=== PATIENT | female | born 1970 | race Caucasian/White ===

== ENCOUNTER 2019-11-16 05:50 | Day surgery (SDC) | payer OTHER ==
[~2019-11-16] VITALS: Ht 170.2 cm; Wt 109.8 kg
[~2019-11-16 05:50] MED LIST: ANASTROZOLE1 MG PO; EXEMESTANE25 MG PO; MAPAP325 MG PO; MOTRIN IB200 MG PO; OXYCODON-ACETA1 EAC2 PO; ZOLADEX3.6 MG SUB-Q
[2019-11-16] MEDS ORDERED: ALEVE220 MG PO (06:03)
[2019-11-16] MEDS ORDERED: MELATIN3 MG PO (06:04)
--- NOTE | 2019-11-16 09:30 | NUR ---
11/16/19 0930 Lorna Mahmood 0913 PT ARRIVED TO PACU ON 6L VIA MASK, PT STARTS TO REACH AND GRAB HER FACE. VSS. PT REACTIVE TO TACTILE STIMULI AND RESP EVEN AND UNLABORED. 916 PT ABLE TO FOLLOW COMMANDS TO OPEN MOUTH AND ORAL AIRWAY REMOVED. PT REACHING FOR SIDE RAILS AND TRYING TO SIT UP IN BED, RN AND BALL HOLDER TRYING TO REORIENT PT TO PACU. PT LAYS BACK IN BED. 921 PT TRYING TO GET OUT OF BAD AND REPORTS SHE NEEDS TO VOID, EDUCATION GIVEN ON MOON IN PLACE AND MOON WNL. BRIGHT YELLOW URINE NOTED. PT REST BACK IN BED, O2 MASK REMOVED. PT DENIES PAIN AND NAUSEA.
--- NOTE | 2019-11-16 10:05 | NUR ---
PT IS HELPED BACK TO THE BATHROOM BY . SHE IS TUCKED BACK IN, DR. AVENDANO IS IN THE ROOM TALKING WITH PT AND . SHE IS ONLY ABLE TO VOID ABOUT 50ML OF DARK YELLOW URINE.
[2019-11-16] MEDS ORDERED: PERCOCET 5-3251 EACH PO (10:20)
[2019-11-16] MEDS ORDERED: ONDANSETRON ODT8 MG PO (10:21)
--- NOTE | 2019-11-16 11:01 | NUR ---
MEDICATED FOR 3/10 RLQ ABDOMINAL PAIN PER EMAR AT 1040. CRACKERS AND WATER PROVIDED. PT DENIES NAUSEA HOWEVER SHE APPEARS SLIGHTLY DIAPHORETIC AND PALE. PT APPEARS TO BE SLEEPING AT 1100. AT BEDSIDE.
--- NOTE | 2019-11-16 12:37 | NUR ---
LE 1200: PATIENT IS UP TO THE BATHROOM WITH ASSIST. PATIENT VOIDS 300 ML BRIGHT, YELLOW URINE. DISCHARGE INSTRUCTIONS ARE GIVEN AND PATIENT AND SPOUSE VERBALIZE UNDERSTANDING. PATIENT IS GETTING DRESSED. PATIENT TRANSFERS HERSELF TO THE WHEELCHAIR AND THEN TO PERSONAL VEHICLE AND TOLERATES THAT WELL AND SHE IS DISCHARGED HOME.
--- NOTE | 2019-11-16 14:00 | NUR ---
COULD ONLY WAVE AND GIVE ENCOURAGEMENT TO PT OR STAFF IS WHEELING HER TO SURGERY. DID HOWEVER HAVE A MOMENT TO ENCOURAGE AND HAVE PRAYER WITH HIM. WILL FOLLOW NEEDED
--- NOTE | 2019-11-18 09:25 | OR ---
[facility] [address] [place], [place] [address] Signed DATE OF OPERATION: 11/16/2019 SURGEON: Trish Mendoza MD USABILITY ARCHITECT: Major Hernandez MD. PREOPERATIVE DIAGNOSIS: ER positive breast cancer, uterine fibroid. POSTOPERATIVE DIAGNOSIS: ER positive breast cancer, uterine fibroid. PROCEDURE: Total laparoscopic hysterectomy, bilateral salpingo-oophorectomy, cystoscopy. ANESTHESIA: General ET. ESTIMATED BLOOD LOSS: 50 mL. DRAINS: Jones catheter. INDICATIONS AND FINDINGS: The patient is a 49-year-old female 4, para 4, was diagnosed with breast cancer approximately one year ago. She has been on Zoladex as well as exemestane and she wishes to avoid repeat injections because of significant side effects. At this point, she desires removal of her ovaries. At the time of surgery, exam under anesthesia revealed a top-normal size uterus. There was a small fibroid. At the time of laparoscopy, again a small fibroid and normal tubes and ovaries. DESCRIPTION OF PROCEDURE: The patient was prepped and draped in the dorsal lithotomy position. A weighted speculum was placed. The anterior lip of the cervix was visualized and grasped with a single-tooth tenaculum. The cavity was sounded to 9.5 cm in length. The endocervical canal was then dilated and a VCare cannula was inserted and the balloon inflated at the fundus. The tenaculum and speculum removed and the cup was fitted over the cervix and a locking cap fitted into place. Following this, attention was directed above. The Electronically Signed By: TRISH MENDOZA MD 11/18/19 0925 PATIENT NAME: ARIELLE OLIVEIRA OPERATIVE REPORT DATE OF : 74 REPORT #: [id number] PHYSICIAN: TRISH MENDOZA MD PCP: KEIRA ROBERTS MD REPORT IS CONFIDENTIAL AND NOT TO BE RELEASED WITHOUT AUTHORIZATION [facility] [address] [place], [place] [address] Signed infraumbilical area was injected with 0.5% Marcaine plain. An incision was made with a knife. Each layer was then serially elevated and incised until the fascia was opened and identified. Stay sutures were placed on the fascia. Following this, the peritoneum was opened bluntly. The Evie cannula was then placed and the balloon inflated. Placement of the scope confirmed proper positioning. CO2 was then introduced in the abdomen under low pressures. When the abdomen was appropriately distended, the pelvis was visualized and the planned procedure appeared appropriate. Secondary ports were placed slightly below the level of the umbilicus laterally. The left hand port was a 5 mm port and the right side was a Veress needle followed by the expanding port. Each of these areas were injected with the Marcaine, incision made with a knife and the trocars placed under direct vision. Following this, there were some adhesions noted of the omentum to the left lower quadrant obscuring the infundibulopelvic ligament. These were lysed using the LigaSure [place] device. Following this, the procedure was begun. The left infundibulopelvic ligament was cauterized multiple times and then divided. Following this, an Endoloop was placed over the infundibulopelvic ligament to assure hemostasis. This was a 0 PDS. The broad ligament was taken down by serially cauterizing and incising until the round ligament was cauterized and divided. The anterior leaf of the peritoneum was then incised allowing for partial bladder flap. The posterior peritoneum was taken down as well. Uterine vessels were skeletonized and coagulated multiple times. These were then divided. Attention was directed then to the right side. Again, the infundibulopelvic ligament was cauterized multiple times and then divided. An Endoloop was placed over the infundibulopelvic ligament to assure hemostasis. Following this, the broad ligament was serially coagulated and divided until the round ligament was cauterized and divided as well. The anterior and posterior leaves of the peritoneum were then divided, allowing for isolation of the uterine vessels. These were then coagulated multiple times and divided. The peritoneum was taken down further anteriorly. It was clear that the left hand side had been taken fairly high and this was corrected. Further dissection was done posteriorly as well. Attention was redirected to the left side and further dissection was done in the uterine vessel areas as well as anteriorly. Following this, it was felt that the specimen could be removed. During this time, a small anterior fibroid was removed after it came off after grasping this. This was sent with the remainder of the specimen. The Sonicision device was used to separate the specimen from the vaginal cuff beginning posteriorly and wrapping around anteriorly on the left side and again posteriorly and wrapping around the right side anteriorly. Following this, the specimen was removed intact through the vagina. The vaginal canal was then packed with a glove with a wet lap to allow the pneumoperitoneum to reaccumulate. Attention was then directed above again. The abdomen was copiously irrigated and inspected and there was some bleeding points near the left uterine vessels and over the bladder. These were primarily controlled with monopolar cautery with the spatula tip. Following this, the cuff was closed using the EndoStitch. It was begun at the patient's right uterosacral ligament, taking care to incorporate the peritoneum Electronically Signed By: TRISH MENDOZA MD 11/18/19 0925 PATIENT NAME: ARIELLE OLIVEIRA OPERATIVE REPORT DATE OF : 74 REPORT #: [id number] PHYSICIAN: TRISH MENDOZA MD PCP: KEIRA ROBERTS MD REPORT IS CONFIDENTIAL AND NOT TO BE RELEASED WITHOUT AUTHORIZATION [facility] [address] [place], [place] [address] Signed posteriorly and the vaginal mucosa posteriorly and anteriorly. This was run to the patient's left and then back to the center. Following this, the abdomen was irrigated again and there were just some raw areas and there was no evidence of any active bleeding. Tisseel was then sprayed over the pelvis to assure hemostasis. Following this, all instruments removed from the abdomen after allowing as much CO2 as possible to escape. The fascial incision at the umbilicus was reidentified and closed with a running suture of 0 Vicryl. The skin incisions were closed with subcuticular sutures of 3-0 Vicryl Rapide. Attention was directed down below and the vaginal pack was removed. Cystoscopy was then done using the 30-degree scope. The Jones catheter was removed. The scope was then placed and the bladder visualized. There was some bruising posteriorly, but there was no evidence of any sutures or other injury to the bladder. Prompt spill of urine was seen from both of the ureteral orifices. She had received IV fluorescein, but this was not visible at this point. Following this, the procedure was complete after removal of the cystoscope and drainage of the bladder. The Jones catheter was replaced. She was taken to the recovery room in good condition. All sponge and needle counts were correct. Trish Mendoza MD PJW/MODL /[id number] cc: Major Hernandez MD Copies: MAJOR HERNANDEZ MD ~ Electronically Signed By: TRISH MENDOZA MD 11/18/19 0925 PATIENT NAME: ARIELLE OLIVEIRA ANN OPERATIVE REPORT DATE OF : 74 REPORT #: [id number] PHYSICIAN: TRISH MENDOZA MD PCP: KEIRA ROBERTS MD REPORT IS CONFIDENTIAL AND NOT TO BE RELEASED WITHOUT AUTHORIZATION
--- NOTE | 2019-11-18 17:04 | PATH ---
[facility] [address] [place], [place] [address] Signed SPECIMEN(S): A UTERUS, CERVIX, TUBES OVARIES SPECIMEN SOURCE: A. UTERUS, CERVIX, TUBES OVARIES CLINICAL HISTORY: Uterine leiomyoma; breast CA. FINAL PATHOLOGIC DIAGNOSIS: Uterus, cervix, and bilateral fallopian tubes and ovaries, hysterectomy and bilateral salpingo-oophorectomy: - Cervix: Chronic inflammation and reactive changes. - Endometrium: Weakly proliferative endometrium. - Myometrium: Adenomyosis and leiomyoma (4 mm in greatest dimension). - Ovaries: Cystic follicles (1 cm in greatest dimension). - Fallopian tubes: No histopathologic abnormality. - Negative for malignancy. NAL:cml:C2NR MICROSCOPIC EXAMINATION: Histologic sections of all submitted blocks are examined by light microscopy. Focal area of the right fallopian tube fimbria demonstrates mild cellular atypia without increased mitoses. Immunohistochemical stains (with appropriately staining controls) were performed to evaluate this region, which show a non-mutated p53 pattern and no increase Ki-67 staining; this pattern confirms the absence of an intraepithelial lesion. These findings, together with the gross examination, support the pathologic diagnosis. GROSS DESCRIPTION: The specimen, labeled "NishantFelicia," and designated on the requisition "cervix, uterus, bilateral fallopian tubes and ovaries," is received in formalin and consists of 84 gram uterus and cervix without bilateral adnexa. The uterus is 3.7 x 3.4 x 8.6 cm (cornu-cornu x anterior-posterior x fundus-ectocervix). The serosal surface is pink and focally congested with one defect that is 0.7 x 0.6 cm. The ectocervical mucosa is pale pink and smooth. Serial sectioning of the cervix fails to demonstrate any gross abnormalities. The triangular endometrial cavity is lined by a pink smooth and focally congested endometrium that has an average thickness of 0.2 cm. Sectioning through the uterus reveals a pink moderately trabeculated myometrium PATIENT NAME: FELICIA OLIVEIRA PATHOLOGY DATE OF : 74 REPORT #: [id number] PHYSICIAN: [place] PCP: KEIRA ROBERTS MD REPORT IS CONFIDENTIAL AND NOT TO BE RELEASED WITHOUT AUTHORIZATION [facility] [address] [place], [place] [address] Signed with one white-parrish well circumscribed intramural nodule that is 0.4 cm in greatest dimension. The left tubo-ovarian complex has a 7.2 x 0.7 cm fallopian tube with delicate fimbriae. The serosa is violaceous and smooth. Cut sections reveal a pinpoint lumen. The 2.6 x 2.4 x 2.3 cm ovary has a white-parrish cerebriform external surface. Serial sectioning reveals a pink-white variegated ovarian parenchyma with one clear watery fluid filled cystic structure that is 0.9 cm in greatest dimension. No papillary excrescence is grossly identified. The right tubo-ovarian complex has a 6.8 x 0.7 cm fallopian tube with delicate fimbriae. The serosa is violaceous and smooth. Cut sections reveal a pinpoint lumen. The 2.8 x 2.7 x 2.3 cm ovary has a white-parrish cerebriform external surface. Serial sectioning reveals a pink-white variegated ovarian parenchyma with clear watery fluid filled cysts, which measure up to 1.0 cm in greatest dimension. No papillary excrescence is grossly identified. Spring Clipper sections are submitted in four cassettes. Cassette summary: (A1) cervix (A2) uterine wall and intramural nodule (A3) left tubo-ovarian complex (A4) right tubo-ovarian complex. FB (under the direct supervision of a pathologist) The Gross Description was prepared using a voice recognition system. The report was reviewed for accuracy; however, sound-alike word errors, addition and/or deletions may occur. If there is any question about this report, please contact Client Services. ADDITIONAL NOTES: Immunohistochemical and/or in situ hybridization studies were performed on this case with the appropriate positive controls that react as expected. This test was developed and its performance characteristics determined by [facility]. It has not been cleared or approved by the U.S. Food and Drug Administration. The FDA has determined that such clearance or approval is not necessary. This test is used for clinical purposes. It should not be regarded as investigational or for research. [facility] is certified under the Clinical Laboratory Improvement Amendments of 1988 (CLIA) as qualified to perform high complexity clinical laboratory testing. PATIENT NAME: FELICIA OLIVEIRA PATHOLOGY DATE OF : 74 REPORT #: [id number] PHYSICIAN: [place] [facility] PCP: KEIRA ROBERTS MD REPORT IS CONFIDENTIAL AND NOT TO BE RELEASED WITHOUT AUTHORIZATION [facility] [address] [place], [place] [address] Signed PERFORMING LABORATORY: The technical component was performed by [facility], [address] [place] [id number] (Room Worker: Libra Castro MD; CLIA# [id number]). Professional interpretation was performed by [facility], [facility], [address] [place] [address] (CLIA# [id number]). Diagnostician: Jeanine Jeong MD Pathologist Electronically Signed 11/18/2019 Copies: ~ PATIENT NAME: FELICIA OLIVEIRA ANN PATHOLOGY DATE OF : 74 REPORT #: [id number] PHYSICIAN: [place] [facility] PCP: KEIRA ROBERTS MD REPORT IS CONFIDENTIAL AND NOT TO BE RELEASED WITHOUT AUTHORIZATION
== END 2019-11-16 12:15 | disposition home or self-care (01) ==
LOC: DS 05:50
PROVIDERS: Obstetrics & Gynecology
PROC: 0UT94ZZ Resection of Uterus, Percutaneous Endoscopic Approach (ICD-10-PCS; principal; 2019-11-16 06:45)
PROC: 0UT24ZZ Resection of Bilateral Ovaries, Percutaneous Endoscopic Approach (ICD-10-PCS; 2019-11-16 06:45)
PROC: 0UT74ZZ Resection of Bilateral Fallopian Tubes, Percutaneous Endoscopic Approach (ICD-10-PCS; 2019-11-16 06:45)
DX: D25.9 Leiomyoma of uterus, unspecified (principal); N72 Inflammatory disease of cervix uteri; N80.0 Endometriosis of uterus; N83.202 Unspecified ovarian cyst, left side; N83.201 Unspecified ovarian cyst, right side; C50.412 Malignant neoplasm of upper-outer quadrant of left female breast; Z79.899 Other long term (current) drug therapy; Z88.2 Allergy status to sulfonamides; Z17.0 Estrogen receptor positive status [ER+]
CPT/HCPCS: 00944; J0694; J1100; J1170; J1200; J1644; J1885; J2001; J2250; J2370; J2405; J2704; J2765; J3010; J7121

== ENCOUNTER 2022-10-17 07:39 | Emergency (ER) | payer OTHER ==
[~2022-10-17] VITALS: Ht 170.2 cm; Wt 108.0 kg
[~2022-10-17 07:39] MED LIST changes: +ALEVE220 MG PO; +MELATIN3 MG PO; +ONDANSETRON ODT8 MG PO; +PERCOCET 5-3251 EACH PO
--- OUTSIDE RECORDS SUMMARY | 2022-10-17 07:43 | XMS ---
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 Jada has no Care Guidelines for this patient. Leigh VISIT COUNT (12 MO.) 1 [facility] TOTAL 1 NOTE: Visits indicate total known visits. ED/C VISIT TRACKING (12 MO.) 10/17/2022 07:40 [facility] [place] TYPE: Emergency COMPLAINT: - ABNORMAL LABS INPATIENT VISIT TRACKING (12 MO.) No inpatient visits to display in this time frame [id number]
[2022-10-17] MEDS ORDERED: GABAPENTIN300 MG PO (08:00)
[2022-10-17] MEDS ORDERED: ONDANSETRON ODT8 MG PO (12:31)
[2022-10-17] MEDS ORDERED: OXYCODONE HCL5 MG PO (12:31)
[2022-10-17 12:53] VITALS: BP 110/76
== END 2022-10-17 12:54 | disposition home or self-care (01) ==
LOC: ED 07:39
DX: M54.50 Low back pain, unspecified (principal); R93.7 Abnormal findings on diagnostic imaging of other parts of musculoskeletal system; K80.50 Calculus of bile duct without cholangitis or cholecystitis without obstruction; Z88.2 Allergy status to sulfonamides; Z79.899 Other long term (current) drug therapy
CPT/HCPCS: 36415; 72158; 76705; 80053; 83690; 85025; 85060; 85651; 86140; 99284-25; A9577; J1170; J7030

== ENCOUNTER 2022-10-25 12:40 | Inpatient (IN) | payer OTHER ==
[~2022-10-25] VITALS: Ht 170.2 cm; Wt 92.3 kg
[~2022-10-25 12:40] MED LIST changes: +GABAPENTIN300 MG PO; +OXYCODONE HCL5 MG PO
--- OUTSIDE RECORDS SUMMARY | 2022-10-25 12:43 | XMS ---
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 Jada has no Care Guidelines for this patient. [place] [facility] 2 NOTE: Visits indicate total known visits. ED/C VISIT TRACKING (12 MO.) [facility] COMPLAINT: - ALTERED MENTAL STATUS 10/17/2022 07:[address] [facility] [place] TYPE: Emergency COMPLAINT: - ABNORMAL LABS DIAGNOSES: - Abnormal findings on diagnostic imaging of other parts of musculoskeletal system - Allergy status to sulfonamides - Calculus of bile duct without cholangitis or cholecystitis without obstruction - Low back pain, unspecified - Other fpc (current) drug therapy INPATIENT VISIT TRACKING (12 MO.) No inpatient visits to display in this time frame [id number]
--- NOTE | 2022-10-25 18:30 | NUR ---
pt arrived to ccu via stretcher with rocael rn at this time for admission into room 127
[2022-10-25 18:40] VITALS: BP 102/84
--- NOTE | 2022-10-25 19:15 | EKG ---
[facility] [address] [place] [address] Signed Sinus tachycardia Otherwise normal ECG When compared with ECG of 26-APR-2018 16:29, Vent. rate has increased BY 61 BPM Confirmed by Maicol Montero MD () on 10/25/2022 7:15:19 PM Electronically Signed By: MAICOL MONTERO MD 10/25/221914 PATIENT NAME: ARIELLE OLIVEIRA ANN Electrocardiogram DATE OF : 74 PHYSICIAN: MAICOL MONTERO MD REPORT #: [id number] REPORT IS CONFIDENTIAL AND NOT TO BE RELEASED WITHOUT AUTHORIZATION
[2022-10-25 20:31] VITALS: BP 123/89
--- NOTE | 2022-10-25 20:45 | NUR ---
PRBC TRANSFUSION FINSIHED 2019. PATIENT HAS NO SIGNS OF REACTION. VS STABLE. PATIENT UP TO THE BSC WITH ASSIST FROM HER AND ABLE TO VOID 250 MLS PRIMO COLORED URINE. PATIENT IS ABLE TO STAND WITH ASSIST BUT REQUIRES SIGNIFICANT ASSISTANCE FROM HER .
--- NOTE | 2022-10-25 21:06 | NUR ---
CONTINUED ATTEMPT TO START SECOND IV AND DRAW LABS UNSUCESSFUL. LIVE IN CAREGIVER CONTACTED FOR ASSISTANCE.
--- NOTE | 2022-10-25 22:21 | NUR ---
IV FLUIDS PROVIDED. IV FLUSHED WELL. NO OTHER NEEDS AT THIS TIME. FAMILY IN ROOM. CALL LIGHT IN REACH.
[2022-10-25 23:00] VITALS: BP 130/97
--- NOTE | 2022-10-25 23:00 | NUR ---
PATIENT PROVIDED WITH PRN PAIN MEDS AND PRN ATIVAN FOR ANXIETY. PATIENT'S REPORTS THAT SHE "STARTS TO SUNDOWN" AT NIGHT AND FREQUENTLY BECOMES RESTLESS. ASSISTED PATIENT TO GET COMORTABLE. LIGHTS DIMMED. AFTER 30 MINS PATIENT APPEARED TO BE SLEEPING VERY SOUNDLY AND SNORING, WHICH PATIENT'S STATED WAS NORMAL. Sp02 WAS BETWEEN 87-90%; PLACED ON 2L NC.
[2022-10-26] VITALS (12 sets, daily range): BP systolic 106–141; BP diastolic 61–89
--- NOTE | 2022-10-26 01:37 | NUR ---
PT SPO2 DROPS TO LOW 80s. PT SLEEPING WITH MOUTH OPEN, CHANGED TO AN OXYMASK @ 4LPM. sPO2 RETURNS TO MID 90s. NO OTHER NEEDS AT THIS TIME. SPOUSE IN ROOM. CALL LIGHT IN REACH.
--- NOTE | 2022-10-26 03:00 | NUR ---
ASSISTED PATIENT UP TO THE [facility] TO [facility]ID. PATIENT MOVES WITH 1PA BUT IS PAINFUL UPON MOVING. DECLINED PRN PAIN MEDS. PATIENT VOIDED AND RETURNED TO BED. PATIENT'S REPORTS SHE HAS BEEN HAVING "SUNDOWNER" SYMPTOMS BUT PATIENT IS ABLE TO ANSWER ALL ORIENTATION QUESTIONS APPROPRIATELY. PATIENT HOWEVER IS RESTLESS AND PICKING AT HER LINES. ENCOURAGED PATIENT TO REST. REMOVED ALL EXTRA STIMULI.
--- NOTE | 2022-10-26 06:05 | NUR ---
LABS DRAWN FROM IV SITE PER POLICY. PATIENT IS ALERT. SOMEWHAT CONFUSED UPON WAKING BUT EASILY REORIENTED AND ANSWERS QUESTIONS APPROPRIATELY. VS STABLE ASSISTED PATIENT WITH SOME WATER AND REPOSITIONING IN BED.
--- NOTE | 2022-10-26 07:30 | NUR ---
REPORT RECEIVED FROM NIGHT RN - PT RESTING IN BED WITH AT BEDSIDE.
--- NOTE | 2022-10-26 08:30 | NUR ---
ASSESSMENT COMPLETE - PT ORIENTED X4 WITH SELF CORRECTION ON INCORRECT YEAR RESPONSE. EXPRESSIVE APHASIA NOTED AT TIMES, DIFFICULTY STAYING ON TRACK OF CONVERSATION SHE IS HAVING. ALL OTHER NEURO EXAM WNL. VS STABLE - REMAINS IN SINUS TACH RHYTHM. PT PIVOT TRANSFERING BY ASSIST OF TO BSC TO EAT BREAKFAST. RN AT SIDE TO ASSIST WITH LINE MANAGMENT. PT PREFERS TO PREFORM CARES. IV SITE PATENT X2. PT REPORTS PAIN AT 5/10 IN BACK, PRN MEDICATION PROVIDED. NIO BOWEL CARE INITIATED - NO BM FOR OVER 5 DAYS PER . ENCOURAGED CLEAR ENSURES - PT TOLERATING WELL.
--- NOTE | 2022-10-26 09:22 | NUR ---
RN IN ROOM ROUNDING WITH MD - ALL QUESTIONS ANSWERED FOR FAMILY ON CURRENT POC.
--- NOTE | 2022-10-26 10:00 | NUR ---
LABS PULLED FROM RIGHT IV SITE FOR 1000 LABS WITHOUT DIFFICULTY. PT AWAKE AND WORKING WITH PHYSICAL THERAPY.
--- NOTE | 2022-10-26 11:21 | NUR ---
RN IN ROOM TO ROUND ON PT - PT VISITING WITH FAMILY AT BEDSIDE. FAMILY STATES PT HAS EATEN 1 BITE OF GERMAN AND YOGURT. ENCOURAGED FLUID INTAKE. PT RESTING COMFORTABLY IN BED. VS STABLE.
--- NOTE | 2022-10-26 12:10 | NUR ---
ASSESSMENT COMPLETE - PT SPEECH MORE QUICK TO RESPOND APPROPRIATLEY TO ORIENTATION QUESTIONS. NO FURTHER CHANGES. PT NOT INTERESTED IN LUNCH AT THIS TIME BUT DID FINISH CLEAR ENSURE AND REQUESTS MORE. DAUGHTER AT BEDSIDE, ENCOUGED PT TO REST WITHOUT VISITORS IN ROOM AT THIS TIME. CALL LIGHT IN REACH. DENIES FURTHER NEEDS.
--- NOTE | 2022-10-26 12:47 | NUR ---
PLATLET INFUSION STARTED - PT RESTING IN BED ASLEEP, NO DISTRESS NOTED. 2L 02 PLACED TO MAINTAIN SPO2 WHILE SLEEPING. VS STABLE.
[2022-10-26] MEDS ORDERED: HYDROCODON-ACE1 EA10 PO (15:02)
--- NOTE | 2022-10-26 15:03 | NUR ---
MED REC COMPLETE
--- NOTE | 2022-10-26 16:15 | NUR ---
2ND UNIT PLATELETS COMPLETE - VS STABLE. PT UP TO BSC TO VOID WITH HUSAND ASSIST PIVOT TRANSFER. ORAL CARE AND BED LINEN COMPLETE.
--- NOTE | 2022-10-26 17:44 | NUR ---
ASSESSMENT COMPLETE - PT STRENGHT, SPEECH AND APETITE ALL IMPROVING. PRBC UNIT CURRENTLY INFUSING. PT TOLERAING ALL INFUSIONS WITHOUT DIFFICULTY. VS REMAIN STABLE. PT DENIES NEED FOR PAIN MEDICATION AT THIS TIME. FAMILY AT BEDSIDE, ATTENTIVE TO ALL NEEDS.
--- NOTE | 2022-10-26 20:16 | NUR ---
ASSISTED PATIENT UP TO THE BSC. PATIENT IS ABLE TO STAND WITH 1PA HEAVY ASSIST. PATIENT WILLING TO USE WALKER AT THIS TIME. STAND PIVOT WITH THIS RN AND FAMILY ASSIST. PATIENT PASSED SOME GAS AND HAD A SMEAR OF BM. PATIENT IS ALERT AND ORIENTED; FOLLOWS DIRECTIONS EASILY. HAS EQUAL STRENGTH CLAIR IN UPPER AND LOWER EXTREMITIES. VS STABLE. TOLERATING ROOM AIR. LUNG SOUNDS ARE CLEAR. IV SITE WNL IN RIGHT HAND. RIGHT AC SITE HAS LEAKED SOME UNDER THE DRESSING BUT FLUSHES EASILY. PATIENT HAS VISITORS AND FAMILY AT BEDSIDE.
--- NOTE | 2022-10-26 21:30 | NUR ---
PATIENT PROVIDED EVENING MEDS PER ORDER. RT DISCUSSED OPTION OF CPAP USE AND PATIENT REQUEST TO ONLY USE SUPPLEMENTAL O2. PATIENT RESTING IN BED WITH IVF INFUSING. IV SITES WNL X2. PRN PAIN MEDS FOR CHRONIC BACK PAIN. PRN ATIVAN FOR ANIXETY. FAMILY AT BEDSIDE. NO OTHER NEEDS AT THIS TIME.
[2022-10-27] VITALS: BP 123/77
[2022-10-27 02:00] VITALS: BP 119/69
--- NOTE | 2022-10-27 02:15 | NUR ---
PATIENT CALLED AND REPORTS 6/10 BACK PAIN. PRN OXY PROVIDED. PATIENT ASSISTED TO POSITION FOR COMFORT ON HER SIDE.
[2022-10-27 04:00] VITALS: BP 138/79
--- NOTE | 2022-10-27 05:24 | NUR ---
PT ASSISTED TO BSSC AND BACK TO BED. FAMILY AND PT REQUEST MED FOR ANXIETY, PRN ANXIETY MED PROVIDED. NO OTHER NEEDS AT THIS TIME. CALL LIGHT IN REACH. SPOUSE IN ROOM.
[2022-10-27 06:00] VITALS: BP 147/82
--- NOTE | 2022-10-27 06:00 | NUR ---
LAB UPDATE GIVEN TO PATIENT'S SPOUCE AT BEDSIDE. PATIENT APPEARS TO BE SLEEPING SOUNDLY. VS STABLE. NEW BAG IVF STARTED. IV SITE WNL.
--- NOTE | 2022-10-27 07:41 | NUR ---
Report from Dickson Ramírez RN. Patient lying in bed. Alert. Spouse at bedside. IV fluids infusing. Oxygen on per Oxymask at this time. Allowed to rest at this time. Call light in reach. Bed rails up X2.
--- NOTE | 2022-10-27 08:17 | NUR ---
ASSIST TO BSC BY SPOUSE AND THIS NURSE. CONTINENT OF URINE, SMEARING STOOL. RETURNS TO BED. ASSIST TO SET UP FOR BREAKFAST. DECADRON ADMINISTERED PRESCRIBED. DENIES OTHER NEEDS AT THIS TIME. SPOUSE REMAINS AT BEDSIDE. O2 MASK REMOVED, SATS REMAIN 92% ON ROOM AIR AT THIS TIME.
[2022-10-27 08:34] VITALS: BP 131/84
--- NOTE | 2022-10-27 08:39 | NUR ---
PATIENT AWAKE IN BED, BREAKFAST PROVIDED. PATIENT ENCOURAGED TO EAT,PUDDING AND APPLESAUCE PROVIDED. VITALS CHARTED, AT BEDSIDE. OTHER FAMILY MEMBERS ARRIVING AT THIS TIME.
--- NOTE | 2022-10-27 09:35 | NUR ---
This nurse in room to give AM medications. Patient states IV site to hand is wet. Dressing removed, IV site intact, no signs of infiltration noted. Hub noted to be loose, tightened. Transparent dressing reapplied. IV site flushes without difficulty, dressing remains dry and intact. AM medications adminsitered. New orders, Dr. Juan notified platelets will not be available until this evening. Dr. Juan in to speak with patient and family. Informed of plan of care for LP, MRI and need for more platelets. Patient, family and spouse verbalize understanding, no questions.
--- NOTE | 2022-10-27 11:00 | NUR ---
OVER TO UNIT. PATIENT HAS MULTIPLE FAMILY MEMBERS IN THE ROOM AND COUNTERINTELLIGENCE AGENT ARRIVES TO TAKE PATIENT FOR LP. WILL FOLLOW UP WITH PATIENT AT LATER TIME.
--- NOTE | 2022-10-27 11:15 | NUR ---
RADIOLOGY STAFF HERE TO TRANSPORT PATIENT FOR LP WITH MEDICATION ADMINISTRATION BY DR. RO. PATIENT IV CONVERTED TO SL. ASSIST TO BSC, CONTINENT OF SMALL AMOUNT OF SOFT, BROWN STOOL. RETURNS TO BED. TRANSPORTED BY RADIOLOGY FOR STUDY AT THIS TIME.
--- NOTE | 2022-10-27 13:29 | NUR ---
PT ALERT, ORIENTED AND SUPPORTEC BY A HOST OF FAMILY-BOTH LOCALLY AND FROM OUT OF TOWN. PT VERY APPRECIATIVE OF CARE SHE HAS RECEIVED WHILE AT [facility]. GAVE ENCOURAGEMENT, PT REQUESTED PRAYER AND CHANGE [facility]EN PREFERENCE TO [facility]. I TOOK CARE OF REQUEST WITH ADMITTING. GAVE ENCOURAGEMENT, BLESSING, G.POST AND SUPPORT. WILL CONTINUE TO FOLLOW.
--- NOTE | 2022-10-27 14:03 | NUR ---
To room 115 from radiology in bed. Alert and oriented. Family in room at this time. Call light in reach. Lunch provided.
[2022-10-27 20:35] VITALS: BP 136/79
--- NOTE | 2022-10-27 20:50 | NUR ---
PT ASSESSMENT COMPELTE. FAMILY PRESENT AT BEDSIDE. PT REPORTS PAIN 6/10 TO R LEG. SCHEDULED MEDICATION ADMINISTERED. PT DENIES NAUSEA OR SOB. IV X 2 FLUSHED WITH NS. R HAND IV WITH SOME PAIN UPON FLUSHING, SL. R AV IV WITH IFV INFUSING, NOT PAINFUL. PT REPORTS CHRONIC NUMBNESS TO RLE. PT'S DAUGHTER PUT CREAM TO LEG AND MASSAGED. ALL FAMILIES QUESTIONS AND CONCERNS ANSWERED. FURHTER NEEDS DENIED AT THIS TIME. CALL LIGHT IN REACH. FAMILY REMAINS AT BEDSIDE.
--- NOTE | 2022-10-27 22:08 | NUR ---
pt reports pain 6/10 to back. prn administered. pt requests prn ativan for nighttime agitation and assitance sleeping. administered. o2 placed at 2 lpm. bed alarm activated. pt's son and at bedside. further needs denied at this time. call light in reach.
--- NOTE | 2022-10-28 | NUR ---
CALL LIGHT ANSWERED. 2 PA TO BEDSIDE COMMODE. PATIENT NEEDS ASSISTANCE TO STAND UP DUE TO WEAKNESS. PATIENT DID SELF WIPE. PATIENT IS BACK IN BED. PATIENT VOIDED 300ML.
--- NOTE | 2022-10-28 00:05 | NUR ---
PT'S SON TO RN STATION, REQUESTS HELP TO GET HIS MOM TO BSC. PT UP TO BSC AND BACK TO BED WITH 2 PA. PT TOLERATED WELL. OXYGEN REPLACED @ 2LPM. PT STATES THAT PAIN IS WELL CONTROLLED. DENIES FURTHER NEEDS AT THIS TIME. CALL LIGHT IN REACH. PT'S SON RESTING ON COUCH.
--- NOTE | 2022-10-28 02:25 | NUR ---
PT ASSESSMENT COMPLETE. PT RESTING IN BED WITH EYES CLOSED. PT WAKES EASILY. RATES PAIN 6/10, PRN ADMINISTERED PER REQUEST. PT DENIES SOB AND NAUSEA. RAC IV FLUSHED WITH 10 ML NS, WNL, IVF INFUSING ORDERED. ICE WATER REFILLED. PT'S SON RESTING ON COUCH. PT DENIES FURTHER NEEDS. CALL LIGHT IN REACH.
--- NOTE | 2022-10-28 03:38 | NUR ---
PT ROUNDING. PT RESTING IN BED, SNORING AUDIBLY FROM DOORWAY. PT APPEARS TO BE SLEEPING. SON ON COUCH. CALL LIGHT IN REACH.
[2022-10-28 04:49] VITALS: BP 152/99
--- NOTE | 2022-10-28 06:03 | NUR ---
PT ROUNDING. PT RESTING IN BED AWAKE, LOOKING AT PHONE. PT REPORTS PAIN 5/10 TO BACK AND ANXIETY, REQUESTS PRNS. ADMINISTERED. PT DENIES FURTHER NEEDS. O2 IN PLACE VIA OXYMASK @ 2 LPM. CALL LIGHT IN REACH,
--- NOTE | 2022-10-28 07:25 | NUR ---
report from shakira keller, in pt room - she awakens easily - iv checked alarming with bend, flushes well. pt known to this rn - she remembers me and holds hand smiles and let her know I would be with her today. enc. her to sleep for now, son in room and call light in reach - pt denies needs.
--- NOTE | 2022-10-28 08:27 | NUR ---
Patient up to the bed side commode. Ambulated with two person assistance. Patient voided 150 cc. Full linen change. Patient back in bed with call light within reach. No other assistance needed at this time.
--- NOTE | 2022-10-28 09:21 | NUR ---
MORNING MEDICATIONS GIVEN.
[2022-10-28 10:03] VITALS: BP 135/80
--- NOTE | 2022-10-28 10:30 | NUR ---
PT TO BSC WEAK- 1 PERSON MAX ASSIST. VOID 300 ML OF CLEAR URINE, SPEECH IS CONTINUEING TO BE SLOW AND SLURRED BUT PT IS ALERT AND ORIENTED AT THIS TIME. IN ROOM - PT DENIES NEEDS, DENIES PAIN MEDS, BACK TO BED WITH CALL LIGHT.
--- NOTE | 2022-10-28 11:15 | NUR ---
PT UP AT BEDSIDE WITH pt/ot STAFF - DC PLAN FOR HOME NEXT - IV DC X2 WNL.
[2022-10-28] MEDS ORDERED: DEXAMETHASONE4 MG PO (11:16)
--- NOTE | 2022-10-28 11:50 | NUR ---
Spoke with Felicia and Dr. Dillard. They plan to dc to home today. Dr Dillard will pickle water pump operator commode and shower chair from [place]. Two daughters are staying with pt in the home. Both deny other needs. PT/OT are in the room working with Felicia. She states she is very tired. Plan is home with family today.
== END 2022-10-28 12:08 | disposition home or self-care (01) | DRG 542 ==
LOC: ED 12:40 → CCU 17:57 → MS 17:57
PROVIDERS: ADMIT Family Medicine; ATTEND Family Medicine
PROC: 30233N1 Transfusion of Nonautologous Red Blood Cells into Peripheral Vein, Percutaneous Approach (ICD-10-PCS; principal; 2022-10-25)
PROC: 30233R1 Transfusion of Nonautologous Platelets into Peripheral Vein, Percutaneous Approach (ICD-10-PCS; 2022-10-25)
PROC: 009U3ZX Drainage of Spinal Canal, Percutaneous Approach, Diagnostic (ICD-10-PCS; 2022-10-27)
PROC: 3E0R305 Introduction of Other Antineoplastic into Spinal Canal, Percutaneous Approach (ICD-10-PCS; 2022-10-27)
PROC: 30233R1 Transfusion of Nonautologous Platelets into Peripheral Vein, Percutaneous Approach (ICD-10-PCS; 2022-10-27)
DX: C79.51 Secondary malignant neoplasm of bone (principal); G93.6 Cerebral edema; C79.31 Secondary malignant neoplasm of brain; C79.49 Secondary malignant neoplasm of other parts of nervous system; B37.0 Candidal stomatitis; E87.1 Hypo-osmolality and hyponatremia; C50.919 Malignant neoplasm of unspecified site of unspecified female breast; D69.6 Thrombocytopenia, unspecified; D63.0 Anemia in neoplastic disease; E87.5 Hyperkalemia; R73.9 Hyperglycemia, unspecified; R74.01 Elevation of levels of liver transaminase levels; Z88.2 Allergy status to sulfonamides; Z79.891 Long term (current) use of opiate analgesic; Z79.899 Other long term (current) drug therapy
CPT/HCPCS: 36415; 36430; 51701; 70470; 71045; 72156; 72157; 77002; 80048; 80053; 80076; 81003; 82140; 83036; 83735; 84100; 84300; 84484; 85025; 85060; 85384; 85610; 85730; 86850; 86900; 86901; 86922; 89051; 93005; 93010; 97163; 97166; 97530; 99285-25; A9579; G0480; J1100; J2060; J7030; J9260; P9016; P9035; Q9967

== ENCOUNTER 2022-10-29 10:30 | Day surgery (SDC) | payer OTHER ==
[~2022-10-29] VITALS: Ht 170.2 cm; Wt 108.2 kg
[~2022-10-29 10:30] MED LIST changes: +DEXAMETHASONE4 MG PO; +HYDROCODON-ACE1 EA10 PO
[2022-10-29 11:18] VITALS: BP 128/76
--- NOTE | 2022-10-29 12:39 | NUR ---
10/29/22 1239 Char Padilla 1230-PATEINT ARRIVES TO PACU ON 6L VIA MASK. PATEINT IS NONAROUSABLE. RESP EVEN AND UNALABORED.
[2022-10-29 13:19] VITALS: BP 135/94
== END 2022-10-29 13:15 | disposition home or self-care (01) ==
LOC: DS 10:30 → OPS 10:30 → DS 12:00 → OPS 13:15
PROVIDERS: ATTEND Specialist
PROC: 07DT3ZX Extraction of Bone Marrow, Percutaneous Approach, Diagnostic (ICD-10-PCS; principal; 2022-10-29 12:00)
DX: C50.412 Malignant neoplasm of upper-outer quadrant of left female breast (principal); C79.51 Secondary malignant neoplasm of bone; D61.818 Other pancytopenia
CPT/HCPCS: 01112; 36415; 80053; 83615; 85007; 85025; 86300; J2405; J2704; J3010; J7121